=== PATIENT | female | born 1995 ===

== ENCOUNTER 2023-09-19 08:42 | Outpatient (CLI) | payer OTHER ==
--- NOTE | 2023-09-19 13:58 | Ultrasound Report ---
PROCEDURE: Extremity Soft Tissue Limited INDICATIONS: MASTODYNIA, MASS RIGHT HAND TECHNIQUE: Real-time scanning was performed of the right hand, with image documentation. COMPARISON: None. Findings and impression: An area region in the dorsum of the right hand/wrist, there is a cyst measuring 1.5 x 0.8 x 1.2 cm. T his is a typical location for a ganglion cyst. Clinical followup is recommended. If there is new or w orsening clinical concern, reimaging could be obtained. Reviewed by: Cristopher Aden MD on 09/19/2023 1:57 PM PDT Approved by: Cristopher Aden MD on 09/19/2023 1:57 PM PDT Station ID: [id number]
--- NOTE | 2023-09-20 08:59 | Ultrasound Report ---
LIMITED ULTRASOUND OF RIGHT BREAST: 09/19/2023 CLINICAL: Focal right breast pain. No prior exams were available for comparison. Ultrasound of the right breast 9-10 o'clock region was performed on the area of interest. Corado scale images of the real-time examination were reviewed. IMPRESSION: NEGATIVE There is no sonographic evidence of malignancy. There is no sonographic abnormality seen in the right breast to correspond with the pain, however, cl inical followup is recommended. This exam was interpreted at Station ID: [id number]. Electronically Signed By: Kasie austin/[email or web address]:09/19/2023 09:23:43 Ultrasound BI-RADS: 1 Negative BI-RADS CATEGORY: (1) - 1 Unspecified - other recall n/a LATERALITY: (B)
== END 2023-09-19 08:43 | disposition home or self-care (01) ==
LOC: DI 08:42
PROVIDERS: ATTEND Nurse Practitioner Primary Care
DX: N64.4 Mastodynia (principal); M25.831 Other specified joint disorders, right wrist